=== PATIENT | female | born 1980 | race Caucasian/White ===

== ENCOUNTER 2020-02-24 20:27 | Emergency (ER) | payer SELFPAY ==
[~2020-02-24] VITALS: Ht 157.5 cm; Wt 73.5 kg
[2020-02-24 20:43] VITALS: BP 82/39
[2020-02-24] MEDS ORDERED: CLINDAMYCIN 600 MG/4 ML VIAL IV ONE (21:20)
[2020-02-24] MEDS ORDERED: NACL 0.9% 1,000 ML IV ONE (21:20)
[2020-02-24] MEDS ORDERED: KETOROLAC 15 MG/ML VIAL IVP ONE (21:20)
[2020-02-24] MEDS ORDERED: DEXAMETHASONE 10 MG/ML VIAL IVP ONE (21:20)
[2020-02-24] MEDS ORDERED: ACETAMINOPHEN EXTRA STRENGTH 500 MG TAB PO ONE (21:20)
[2020-02-24] MEDS ORDERED: CLINDAMYCIN 600 MG in DEXTROSE 5% 50 ML IV ONE (21:35)
[2020-02-24 22:30] VITALS: BP 110/78
== END 2020-02-24 22:30 | disposition home or self-care (01) ==
LOC: MED 20:27
DX: J03.90 Acute tonsillitis, unspecified (principal); F17.210 Nicotine dependence, cigarettes, uncomplicated; J02.9 Acute pharyngitis, unspecified
CPT/HCPCS: 87081; 96365; 96375; 99284; J1100; J1885; J3490; J7030